=== PATIENT | female | born 1990 | race Caucasian/White ===

== ENCOUNTER 2022-05-02 06:00 | Inpatient (IN) | payer MEDICAID ==
[~2022-05-02] VITALS: Ht 162.6 cm; Wt 88.5 kg
[2022-05-02] MEDS ORDERED: OXYTOCIN 20 UNITS in LACTATED RINGERS 1,000 ML IV SCH (06:50)
[2022-05-02] MEDS ORDERED: NALBUPHINE 10 MG/ML AMP IVP PRN (06:50)
[2022-05-02] MEDS ORDERED: CARBOPROST 250 MCG/ML AMP IM PRN (06:50)
[2022-05-02] MEDS ORDERED: METHYLERGONOVINE 0.2 MG/ML AMP IM PRN ×2 (06:50→16:20)
[2022-05-02 07:15] VITALS: BP 135/70
[2022-05-02] MEDS: LACTATED RINGERS 1,000 ML IV SCH ×3 (07:15→15:16)
[2022-05-02] MEDS ORDERED: ONDANSETRON 4 MG/2 ML VIAL ONE (07:27)
[2022-05-02] MEDS ORDERED: ONDANSETRON 4 MG/2 ML VIAL IVP PRN (07:30)
[2022-05-02 08:17] LABS: BASOPHILS % (AUTO) 0.2 % (0.0-2.0); EOSINOPHILS % (AUTO) 0.3 % (0.0-4.0); HEMATOCRIT 37.4 % (36-48); HEMOGLOBIN 12.7 g/dL (12.0-16.0); LYMPHOCYTES # (AUTO) 2.6 K/uL (2.5-16.5); LYMPHOCYTES % (AUTO) 26.8 % (20.5-51.1); MEAN CORPUSCULAR HEMOGLOBIN 33 pg (27-31); MEAN CORPUSCULAR HGB CONC 34 g/dL (33-37); MEAN CORPUSCULAR VOLUME 96.6 fL (80-94); MONOCYTES # (AUTO) 0.5 K/uL (0.8-1.0); NEUTROPHILS # (AUTO) 6.6 K/uL (1.8-7.7); NEUTROPHILS % (AUTO) 67.7 % (42.2-75.2); PLATELET COUNT (AUTO) 209 K/uL (140-450); RED BLOOD CELL COUNT(AUTO) 3.87 MIL/uL (4.20-5.40); RED CELL DISTRIBUTION WIDTH 13.9 % (11.6-13.7); WHITE BLOOD COUNT (AUTO) 9.8 K/uL (4.8-10.8)
[2022-05-02] MEDS ORDERED: AMPICILLIN 2,000 MG VIAL ONE (08:22)
[2022-05-02] MEDS ORDERED: OXYTOCIN 20 UNITS/LR PREMIX 1,000 ML IV ONE (08:24)
[2022-05-02 08:31] LABS: ALBUMIN 2.9 g/dL (3.4-5.0); ANION GAP 17.7 (8-16); CARBON DIOXIDE 19.9 mmol/L (21-32); CREATININE 0.6 mg/dL (0.6-1.3); POTASSIUM 3.6 mmol/L (3.5-5.1); TOTAL BILIRUBIN 0.8 mg/dL (0.0-1.0)
[2022-05-02 08:34] LABS: PROTHROMBIN TIME 9.5 secs (10.8-13.4)
[2022-05-02 08:43] LABS: APPEARANCE,URINE CLEAR (CLEAR); BILIRUBIN,URINE NEGATIVE (NEGATIVE); BLOOD, URINE 2+ (NEGATIVE); COLOR,URINE YELLOW (YELLOW); LEUKOCYTE ESTERASE ,URINE NEGATIVE (NEGATIVE); NITRITE, URINE NEGATIVE (NEGATIVE); PH,URINE 6.5 (5.0-9.0); UGLUCOSE NEGATIVE (NEGATIVE)
[2022-05-02 08:53] LABS: BARBITURATE, URINE NEGATIVE ng/ml (NEG <=200); BENZODIAZEPINE, URINE NEGATIVE ng/mL (NEG <=200); CANNABINOID, URINE NEGATIVE ng/mL (NEG <=50); COCAINE, URINE NEGATIVE ng/mL (NEG <=300); OPIATE, URINE NEGATIVE ng/mL (NEG <=2000); PHENCYCLIDINE SCREEN,URINE NEGATIVE ng/mL (NEG <=25)
[2022-05-02] MEDS ORDERED: ROPIVACAINE 0.2%/NS PREMIX 200 ML EPI ONE (09:02)
[2022-05-02] MEDS ORDERED: fentaNYL citrate 0.05 MG/ML VIAL ONE (09:03)
--- NOTE | 2022-05-02 09:20 | NUR ---
PATIENT HAS BEEN SCREENED AND CATEGORIZED LOW NUTRITION RISK. PATIENT WILL BE SEEN WITHIN 7 DAYS OF ADMISSION. 05/09/22 REVIEWED BY SID REID [address]
[2022-05-02 09:40] LABS: WBC,URINE 0-5 /HPF (0-5)
[2022-05-02] MEDS ORDERED: PREN-556 PO (13:17)
[2022-05-02] MEDS ORDERED: IBUPROFEN 800 MG TAB PO PRN (16:20)
[2022-05-02] MEDS ORDERED: TEMAZEPAM 15 MG CAP PO PRN (16:20)
[2022-05-02] MEDS ORDERED: oxyCODONE/APAP 5/325 MG 1 TAB TAB PO PRN ×2 (16:20)
[2022-05-02] MEDS ORDERED: OXYTOCIN 10 UNITS/ML VIAL IM PRN (16:20)
[2022-05-02] MEDS ORDERED: BENZOCAINE/MENTHOL 20%-0.5% 60 GM CAN TP PRN (16:20)
[2022-05-02] MEDS ORDERED: METHYLERGONOVINE 0.2 MG TAB PO PRN (16:20)
[2022-05-02] MEDS ORDERED: DOCUSATE SOD/SENNA 50/8.6 MG 1 TAB PO SCH (21:00)
[2022-05-02] MEDS ORDERED: FLU VACCINE QS2022-23 0.5 ML SYR IMVAC ONE (23:50)
[2022-05-03 06:06] LABS: HEMATOCRIT 30.6 % (36-48); HEMOGLOBIN 10.6 g/dL (12.0-16.0)
== END 2022-05-04 14:45 | disposition home or self-care (01) | DRG 560 ==
LOC: MLD 06:00 → OBSVTOIN 06:44 → MFCC 20:45
PROVIDERS: ADMIT Obstetrics & Gynecology; ATTEND Obstetrics & Gynecology
PROC: 10D07Z6 Extraction of Products of Conception, Vacuum, Via Natural or Artificial Opening (ICD-10-PCS; principal; 2022-05-02)
PROC: 0HQ9XZZ Repair Perineum Skin, External Approach (ICD-10-PCS; 2022-05-02)
PROC: 3E0R3BZ Introduction of Anesthetic Agent into Spinal Canal, Percutaneous Approach (ICD-10-PCS; 2022-05-02)
PROC: 00HU33Z Insertion of Infusion Device into Spinal Canal, Percutaneous Approach (ICD-10-PCS; 2022-05-02)
PROC: 3E0234Z Introduction of Serum, Toxoid and Vaccine into Muscle, Percutaneous Approach (ICD-10-PCS; 2022-05-02)
DX: O70.0 First degree perineal laceration during delivery (principal); Z37.0 Single live birth; R71.0 Precipitous drop in hematocrit; Z20.822 Contact with and (suspected) exposure to COVID-19; Z3A.38 38 weeks gestation of pregnancy; Z23 Encounter for immunization
CPT/HCPCS: 36415; 51702; 80053; 80305; 81001; 85018; 85025; 85610; 85730; 86592; 86762; 86886; 86900; 86901; 87340; 87653-90; 90715; J0290; J2300; J2405; J2590; J2795; J3010; J7120

== ENCOUNTER 2022-10-02 09:20 | Day surgery (SDC) | payer MEDICAID ==
[~2022-10-02] VITALS: Ht 157.5 cm; Wt 70.8 kg
[~2022-10-02 09:20] MED LIST: PREN-556 PO
[2022-10-02] MEDS ORDERED: ROCURONIUM 50 MG/5 ML VIAL IV ONE ×2 (12:00→12:35)
[2022-10-02] MEDS ORDERED: SUGAMMADEX SODIUM 200 MG/2 ML VIAL IV ONE ×2 (12:00→12:58)
[2022-10-02] MEDS ORDERED: ONDANSETRON 4 MG/2 ML VIAL ONE ×2 (12:00→12:36)
[2022-10-02] MEDS ORDERED: DEXAMETHASONE 4 MG/ML VIAL ONE ×2 (12:00→12:36)
[2022-10-02] MEDS ORDERED: fentaNYL citrate 0.05 MG/ML - 50mL vial IV ONE (12:00)
[2022-10-02] MEDS ORDERED: SUCCINYLCHOLINE CHLORIDE 200 MG/10 ML VIAL IVP ONE ×2 (12:00→12:34)
[2022-10-02] MEDS ORDERED: PROPOFOL 200 MG/20 ML VIAL IV ONE ×2 (12:00→12:35)
[2022-10-02] MEDS ORDERED: MEPERIDINE 25 MG/ML SYR ONE ×2 (12:00→13:01)
[2022-10-02] MEDS ORDERED: SEVOFLURANE 250 ML BTL INH ONE (12:00)
[2022-10-02] MEDS ORDERED: fentaNYL citrate 0.05 MG/ML VIAL ONE (12:12)
[2022-10-02] MEDS ORDERED: BUPIVACAINE-MPF 0.25% 30 ML VIAL INJ ONE (12:16)
[2022-10-02] MEDS ORDERED: diphenhydrAMINE 50 MG/ML VIAL IVP PRN (13:20)
[2022-10-02] MEDS ORDERED: MEPERIDINE 25 MG/ML SYR IVP PRN (13:20)
[2022-10-02] MEDS ORDERED: ONDANSETRON 4 MG/2 ML VIAL IVP PRN (13:20)
[2022-10-02] MEDS ORDERED: HYDROmorphone 1 MG/ML AMP IVP PRN (13:20)
[2022-10-02] MEDS ORDERED: LACTATED RINGERS 1,000 ML IV SCH (13:20)
== END 2022-10-02 14:18 | disposition home or self-care (01) ==
LOC: MDS 09:20 → MMU 09:21 → MDS 14:18
PROVIDERS: ATTEND Obstetrics & Gynecology
DX: Z30.2 Encounter for sterilization (principal); E66.9 Obesity, unspecified; Z68.30 Body mass index [BMI] 30.0-30.9, adult; Z90.49 Acquired absence of other specified parts of digestive tract
CPT/HCPCS: 58670; 82374; J0330; J1100; J2175; J2405; J2704; J3010; J3490; J7120

== ENCOUNTER 2023-08-16 06:42 | Emergency (ER) | payer MEDICAID, OTHER ==
[~2023-08-16] VITALS: Ht 160 cm; Wt 77.1 kg
[2023-08-16 07:07] VITALS: BP 113/68; PULSE 94; RESP 18; TEMP 97.2; O2SAT 98
[2023-08-16] MEDS: ONDANSETRON 4 MG ODT PO ONE (07:37)
[2023-08-16] MEDS ORDERED: ALUMINUM HYD/MAG/SIMETHICONE 30 ML UDC ONE ×2 (07:45→07:46)
[2023-08-16] MEDS ORDERED: DICYCLOMINE HCL LIQUID 10 MG/5 ML UDC ONE ×2 (07:46→07:47)
[2023-08-16 07:47] LABS: APPEARANCE,URINE CLEAR (CLEAR); BILIRUBIN,URINE NEGATIVE (NEGATIVE); BLOOD, URINE NEGATIVE (NEGATIVE); COLOR,URINE YELLOW (YELLOW); LEUKOCYTE ESTERASE ,URINE NEGATIVE (NEGATIVE); NITRITE, URINE NEGATIVE (NEGATIVE); PROTEIN,URINE NEGATIVE (NEGATIVE); UGLUCOSE NEGATIVE (NEGATIVE); UROBILINOGEN,URINE 0.2 EU/dL (0.2 - 1)
[2023-08-16] MEDS: PANTOPRAZOLE 40 MG TABEC PO ONE (07:53)
[2023-08-16] MEDS: DICYCLOMINE HCL LIQUID 20 MG, ALUMINUM HYD/MAG/SIMETHICONE 30 ML, LIDOCAINE VISCOUS 2% ... PO ONE (07:55)
[2023-08-16] MEDS ORDERED: FAMO-90 PO (08:27)
[2023-08-16] MEDS ORDERED: MAG355OR2 PO (08:27)
[2023-08-16] MEDS ORDERED: OMEP20EC11 PO (08:27)
== END 2023-08-16 08:46 | disposition home or self-care (01) ==
LOC: MED 06:42
DX: K29.70 Gastritis, unspecified, without bleeding (principal); Z87.11 Personal history of peptic ulcer disease; Z79.899 Other long term (current) drug therapy
CPT/HCPCS: 81003; 81025; 99284; Q0162

== ENCOUNTER 2023-10-30 06:15 | Day surgery (SDC) | payer OTHER ==
[~2023-10-30] VITALS: Ht 160 cm; Wt 78.9 kg
[~2023-10-30 06:15] MED LIST changes: +FAMO-90 PO; +MAG355OR2 PO; +OMEP20EC11 PO
[2023-10-30] MEDS ORDERED: fentaNYL citrate 0.05 MG/ML VIAL ONE (07:25)
[2023-10-30] MEDS ORDERED: MIDAZOLAM 2 MG/2 ML VIAL ONE (07:25)
[2023-10-30] MEDS: MIDAZOLAM 2 MG/2 ML VIAL IVP ONE (07:58)
== END 2023-10-30 09:22 | disposition home or self-care (01) ==
LOC: MOR 06:15 → MMU 06:24 → MOR 09:22
PROVIDERS: ATTEND Internal Medicine Gastroenterology
DX: R10.13 Epigastric pain (principal); K21.9 Gastro-esophageal reflux disease without esophagitis; E78.5 Hyperlipidemia, unspecified; Z98.51 Tubal ligation status; Z80.0 Family history of malignant neoplasm of digestive organs; Z91.013 Allergy to seafood; Z79.899 Other long term (current) drug therapy; Z98.890 Other specified postprocedural states
CPT/HCPCS: 36415; 86677; J2250; J3010